=== PATIENT | female | born 1990 | race Caucasian/White ===

== ENCOUNTER → 2018-11-01 | Outpatient (CLI) | payer MEDICAID ==
[2018-11-01 13:01] LABS: APPEARANCE, URINE HAZY (CLEAR); BACTERIA, URINE AUTO 1+ (NEGATIVE); BASO # 0.1 10^3/uL (0.0-0.2); BASO % 0.8 % (0.0-1.0); BILIRUBIN, URINE AUTO NEGATIVE (NEGATIVE); BLOOD, URINE BLOOD NEGATIVE (NEGATIVE); COLOR, URINE YELLOW (YELLOW); EOS # 0.6 10^3/uL (0.0-0.50); EOS % 7.3 % (0.0-3.0); GLUCOSE, URINE (UA) AUTO NEGATIVE (NEGATIVE); HEMATOCRIT 43.6 % (36.0-47.0); HEMOGLOBIN 14.4 g/dl (12.0-15.5); KETONE, URINE AUTO NEGATIVE (NEGATIVE); LEUKOCYTE ESTERASE, URINE AUTO TRACE (NEGATIVE); LYMPH % 35.2 % (24.0-44.0); MEAN CORPUSCULAR HEMOGLOBIN 29.5 pg (27.0-33.0); MEAN CORPUSCULAR VOLUME 89.3 fl (80.0-96.0); MONO # 0.5 10^3/uL (0.0-0.8); MONO % 6.2 % (0.0-5.0); MUCUS, URINE SMALL (NEGATIVE); NEUTROPHILS # 4.3 10^3/uL (1.8-7.7); NEUTROPHILS % 50.3 % (36.0-66.0); NITRITE, URINE AUTO POSITIVE (NEGATIVE); PLATELET COUNT, AUTOMATED 243 10^3/uL (150-450); PROTEIN, URINE AUTO NEGATIVE (NEGATIVE); RBC, URINE AUTO 3 /HPF (0-3); RED BLOOD COUNT 4.88 10^6/uL (4.00-5.40); SQUAMOUS EPITHELIAL CELL UR AU 5 /HPF (0-6); UROBILINOGEN, URINE AUTO 0.2 mg/dL (0.0-2.0); WBC, URINE AUTO 6 /HPF (0-3); WHITE BLOOD COUNT 8.6 10^3/uL (4.0-10.0)
[2018-11-01 13:30] LABS: ALBUMIN 3.7 GM/DL (3.2-5.2); ALT/SGPT 165 U/L (12-78); BILIRUBIN,TOTAL 0.4 MG/DL (0.2-1.0); BLOOD UREA NITROGEN 16 MG/DL (7-18); CALCIUM LEVEL 8.7 MG/DL (8.5-10.1); CARBON DIOXIDE LEVEL 25 MEQ/L (21-32); CHLORIDE LEVEL 106 MEQ/L (98-107); GLOMERULAR FILTRATION RATE > 60.0 (>60); GLUCOSE, FASTING 76 MG/DL (70-100); POTASSIUM SERUM 4.4 MEQ/L (3.5-5.1); SODIUM LEVEL 139 MEQ/L (136-145); TOTAL PROTEIN 8.4 GM/DL (6.4-8.2)
[2018-11-02 10:22] LABS: HEPATITIS B SURFACE ANTIBODY POSITIVE (POSITIVE)
[2018-11-02 10:33] LABS: HEPATITIS B SURFACE ANTIGEN NEGATIVE (NEGATIVE)
== END ==
LOC: M LAB 11:20
PROVIDERS: ATTEND Physician Assistant Medical
DX: Z02.2 Encounter for examination for admission to residential institution (principal); B18.2 Chronic viral hepatitis C; B16.9 Acute hepatitis B without delta-agent and without hepatic coma; B15.9 Hepatitis A without hepatic coma

== ENCOUNTER 2018-11-21 21:01 | Emergency (ER) | payer MEDICAID ==
[~2018-11-21] VITALS: Ht 152.4 cm; Wt 63.6 kg
[2018-11-21] MEDS ORDERED: CLONI1TA PO (21:06)
[2018-11-21] MEDS ORDERED: CETI10TA PO (21:06)
[2018-11-21] MEDS ORDERED: NICO2GUM MT (21:06)
[2018-11-21] MEDS ORDERED: NALT50TA4 PO (21:06)
[2018-11-21] MEDS ORDERED: BENA25CA4 PO (23:35)
[2018-11-21 23:45] VITALS: BP 117/53
[2018-11-21] MEDS ORDERED: diphenhydrAMINE 50 MG CAP PO ONE (23:45)
== END 2018-11-22 00:15 | disposition home or self-care (01) ==
LOC: M ED 21:01
DX: T60.91XA Toxic effect of unspecified pesticide, accidental (unintentional), initial encounter (principal); R09.81 Nasal congestion; R22.0 Localized swelling, mass and lump, head; Z79.899 Other long term (current) drug therapy; Z88.1 Allergy status to other antibiotic agents; Z88.2 Allergy status to sulfonamides